=== PATIENT | female | born 1985 | race Caucasian/White ===

== ENCOUNTER 2019-05-26 07:00 | Day surgery (SDC) | payer BC ==
[2019-05-25 09:31] VITALS: BMI 32.9
--- NOTE | 2019-05-26 06:50 | HP ---
History & Physical Update - Physical Physical: No Change - Assessment Assessment: No Change - Plan Plan: No Change (H&P reviwed, no changes, for suction D&C for missed )
[2019-05-26] MEDS ORDERED: MIDAZOLAM HCL 2 MG/2 ML SINGLE DOSE VIAL ONE (08:51)
[2019-05-26] MEDS ORDERED: PROPOFOL 20 ML ONE ×2 (08:51)
[2019-05-26] MEDS ORDERED: SUCCINYLCHOLINE CHLORIDE 200 MG/10 ML SYRINGE ONE (08:51)
[2019-05-26] MEDS ORDERED: LIDOCAINE HCL/PF 2% SDV 5ML VIAL ONE (08:52)
[2019-05-26] MEDS ORDERED: DEXAMETHASONE SOD PHOSPHATE 4 MG/1 ML VIAL ONE (08:56)
[2019-05-26] MEDS ORDERED: ONDANSETRON 4 MG/2 ML VIAL ONE (08:56)
[2019-05-26] MEDS ORDERED: KETOROLAC TROMETHAMINE 30 MG/1 ML VIAL ONE (09:25)
[2019-05-26] MEDS ORDERED: IBUPROFEN 800 MG/8 ML IJ IVPB PRN (09:44)
[2019-05-26] MEDS ORDERED: oxyCODONE HCL 5 MG TABLET PO PRN (09:44)
[2019-05-26] MEDS ORDERED: ONDANSETRON 4 MG/2 ML VIAL IVPUSH PRN (09:44)
[2019-05-26] MEDS ORDERED: IBUPROFEN 600 MG TABLET (FP) PO PRN (09:44)
[2019-05-26] MEDS ORDERED: ELECTROLYTE-148 SOLN 1,000 ML IV SCH (09:45)
--- NOTE | 2019-05-26 09:48 | OP ---
Operative Note - Note: Operative Date: 05/26/19 Pre-Operative Diagnosis: missed Operation: suction D&C Findings: cx closed , uterus 8 weeks retroverted,no pelvic masses felt Surgeon: Damian Cheng Specimens Removed: EMC Estimated Blood Loss (mls): 50 Drains & Tubes with Location: none Blood Volume Replaced (mls): 0 Operative Report Dictated: Yes
[2019-05-26] MEDS ORDERED: LACTATED RINGERS SOLUTION 1,000 ML IV SCH (10:15)
[2019-05-26 12:00] VITALS: TEMP 98.4
--- NOTE | 2019-05-26 13:14 | OP ---
DATE OF OPERATION: 05/26/2019 PREOPERATIVE DIAGNOSIS: Missed . POSTOPERATIVE DIAGNOSIS: Missed . PROCEDURE: Suction dilation and curettage. SURGEON: Damian Cheng MD ANESTHESIA: General. ESTIMATED BLOOD LOSS: 50 mL. DESCRIPTION OF PROCEDURE: Patient was taken to the operating room under adequate general anesthesia in dorsal lithotomy position. Examination under anesthesia revealed external genitalia to be normal. Vagina was normal. Cervix was closed, no lesion. Uterus was retroverted about 8 weeks' size. Adnexa, no masses were palpated. Then with a weighted speculum in the vagina, anterior lip of the cervix was grasped with a single-tooth tenaculum. Cervix was gradually dilated with Hegar dilator and then suction curette was inserted, and the contents was suctioned. Patient tolerated the procedure well, left the OR in good condition. Melvina [id number]
[2019-05-26 13:21] VITALS: BP 108/62; PULSE 84
--- NOTE | 2019-05-27 18:08 | PATH ---
Surgical Pathology Report Patient Name: WALE DIEGO [facility]. Rec. #: [id number] /Age/Gender: 1985 (Age: 33) / F Account: [id number] Location: [facility] SURGICAL Taken: 05/26/2019 Received: 05/26/2019 Reported: 05/27/2019 Physicians: Damian Cheng M.D. Specimen(s) Received UTERINE CONTENTS Clinical History Blighted ovum, missed Final Diagnosis CONTENTS OF UTERUS, SUCTION DILATION AND CURETTAGE: IMMATURE CHORIONIC VILLI, DECIDUA, AND GESTATIONAL ENDOMETRIUM CONSISTENT WITH PRODUCTS OF CONCEPTION. Electronically Signed Rosetta Blackwell M.D. Gross Description Received in formalin labeled "contents of uterus," is a 7.0 x 5.5 x 1.0 cm aggregate of rangel red soft tissue fragments. Villous tissue is identified. No somatic tissue is identified. A customer response representative portion is submitted in one cassette. DL/05/26/2019 saudi/05/26/2019
== END 2019-05-26 12:40 | disposition home or self-care (01) ==
LOC: JASU-SURG 07:00
PROVIDERS: ATTEND Obstetrics & Gynecology
PROC: 10D17ZZ Extraction of Products of Conception, Retained, Via Natural or Artificial Opening (ICD-10-PCS; principal; 2019-05-26 09:00)
DX: O02.1 Missed abortion (principal)
CPT/HCPCS: 86850; 86900; 86901; 88305-TC; 94760

== ENCOUNTER 2020-04-19 05:40 | Inpatient (IN) | payer BC ==
--- OUTSIDE RECORDS SUMMARY | 2020-04-19 05:55 | XMS ---
:1985 Author Organization [facility] Support Name Relationship Address Phone [facility] Unavailable [address] [place], [place] [id number] KENYA DIEGO [address] [place] [address] [facility] [employer]ST[employer] MOTHER [address] [place] [address] Re-disclosure Warning The records that you are about to access may contain information from federally- assisted alcohol or drug abuse programs. If such information is present, then the following federally mandated warning applies: This information has been disclosed to you from records protected by federal confidentiality rules (42 CFR part 2). The federal rules prohibit you from making any further disclosure of this information unless further disclosure is expressly permitted by the written consent of the person to whom it pertains or as otherwise permitted by 42 CFR part 2. A general authorization for the release of medical or other information is NOT sufficient for this purpose. The Federal rules restrict any use of the information to criminally investigate or prosecute any alcohol or drug abuse patient.The records that you are about to access may contain highly sensitive health information, the redisclosure of which is protected by Article 27-F of the [facility] Public Health law. If you continue you may haveaccess to information: Regarding HIV / AIDS; Provided by facilities licensed or operated by the [facility] Office of Mental Health; or Provided by the [facility] Office for People With Developmental Disabilities. If such information is present, then the following [facility] mandated warning applies: This information has been disclosed to you from confidential records which are protected by state law. State law prohibits you from making any further disclosure of this information without the specific written consent of the person to whom it pertains, or as otherwise permitted by law. Any unauthorized further disclosure in violation of state law may result in a fine or assisted sentence or both. A general authorization for the release of medical or other information is NOT sufficient authorization for further disclosure. Insurance Providers Payer name Policy type / Policy ID Covered Covered republican's Policy Plan Coverage type republican ID relationship to [place] Information [employer] PPO [id number]
[2020-04-19] MEDS: ELECTROLYTE-148 SOLN 1,000 ML IV SCH (06:30)
[2020-04-19 06:45] VITALS: BMI 35.6
[2020-04-19] MEDS ORDERED: BUTORPHANOL TARTRATE 1 MG/ML VIAL IVPB ONE (06:55)
[2020-04-19] MEDS ORDERED: PROMETHAZINE HCL 25 MG/1 ML VIAL IVPB ONE (06:55)
--- NOTE | 2020-04-19 07:00 | HP ---
Past Medical History - Primary Care Physician PCP:: Cherelle Sales - Admission Chief Complaint: 34yo @ 39.2wks with induced HTN, measured her home BP to be 160/90, EU BP 150/90, denies LOMELI, visual changes, RUQ tenderness, Reports + FM, no VB, Ctx every 10min, no LOF History of Present Illness: 1. Obese - BMI 37 - GCT - 122/128 - EFW (03/30/20) - 2492gm - 17%(Dr. Juarez) 2. AMA - DNA screen wnl - 46XY 3. GBS pos for Ampicillin in labor 4. Induced HTN - Pec labs sent - IOL History Source: Patient, Medical Record Limitations to Obtaining History: No Limitations - Past Medical History ...: 2 ...Para: 0 ...Term: 0 ...: 0 ...Spon : 1 ...Induced : 0 ...Living Children: 0 ...Multiple Gestation: 0 ... Weeks Gestation by Dates: 39.2 ...EDC by Dates: 04/24/20 Dermatology: Yes: Other (acne) - Past Surgical History Past Surgical History: Yes: Tonsillectomy Hx Myomectomy: No Hx Transabdominal Cerclage: No Additional Surgical History: D&C - Smoking History Smoking history: Never smoked Have you smoked in the past 12 months: No - Alcohol/Substance Use Hx Alcohol Use: No Home Medications - Allergies Allergies/Adverse Reactions: Allergies Allergy/AdvReac Type Severity Reaction Status Date / Time bee pollen Allergy Intermediate Verified 05/25/19 09:35 naproxen [From Naprosyn] Allergy Mild Hives Verified 05/25/19 09:34 - Home Medications Home Medications: Ambulatory Orders Cetirizine HCl [Zyrtec -] 10 mg PO PRN 05/25/19 Ibuprofen [Motrin -] 600 mg PO TID #21 tablet 05/26/19 Physical Exam - Maternity Vital Signs: Vital Signs Temperature 98.0 F 04/19/20 05:40 Pulse Rate 106 H 04/19/20 05:40 Respiratory Rate 18 04/19/20 05:40 Blood Pressure 157/101 H 04/19/20 05:40 O2 Sat by Pulse Oximetry (%) 100 09/22/20 05:40 Constitutional: Yes: Obese Eyes: Yes: WNL HENT: Yes: WNL Neck: Yes: WNL, Supple Cardiovascular: Yes: WNL Lungs: Clear to auscultation Breast(s): Yes: WNL - Abdominal Exam/OB Fundal Height: 39 Number of Fetuses: Single Presentation: Vertex Contractions: Yes Regularity: Regular (Q10min) Intensity: Mild Monitor Mode: External Heart Rate (range): 140 Heart Rate Location: Midline Category: I Accelerations: Uniform Decelerations: None - Vaginal Exam/OB Vaginal Bleeding: No Speculum Exam: No Dilatation (cm): FT Effacement (%): 50% Amniotic Membrane Status: Intact Presentation: Vertex/Position Station: -3 - Physical Exam Musculoskeletal: Yes: WNL Extremities: Yes: WNL Edema: LUE: 1+, LLE: 1+ Integumentary: Yes: WNL ...Motor Strength: WNL Psychiatric: Yes: WNL, Alert, Oriented Assessment/Plan 34yo P0 @ 39.2 wks with PIH, assymptomatic in prodromal labol Admit to L&D PEC labs for further evaluation of Preeclampsia and IOL IVF/NPO Plan to start cervical ripening with Cytotec and reevaluate cervix in 4hours
[2020-04-19 07:05] LABS: EPI CELLS 6 /uL (0-25.1); HYALINE CASTS 1 /uL (0-3.1); URINE APPEARANCE CLEAR; URINE BACTERIA 85 /uL (0-1359); URINE BILIRUBIN NEGATIVE (NEGATIVE); URINE COLOR YELLOW; URINE GLUCOSE (UA) NEGATIVE (NEGATIVE); URINE KETONE NEGATIVE (NEGATIVE); URINE LEUK ESTERASE NEGATIVE (NEGATIVE); URINE NITRITE NEGATIVE (NEGATIVE); URINE PROTEIN NEGATIVE (NEGATIVE); URINE RBC 5 /uL (0-23.9); URINE UROBILINOGEN 0.2 mg/dL (0.2-1.0); URINE WBC 4 /uL (0-25.8)
[2020-04-19 07:08] LABS: BASO % 0.4 % (0-2.0); EOS % 0.5 % (0-4.5); HEMATOCRIT 33.3 % (32.4-45.2); HEMOGLOBIN 11.4 GM/dL (10.7-15.3); LYMPH % 18.1 % (8-40); MCH 29.5 pg (25.7-33.7); MCHC 34.2 g/dl (32.0-36.0); MEAN CELL VOLUME 86.3 fl (80-96); MEAN PLT VOLUME 11.2 fl (7.5-11.1); PLATELET COUNT 188 K/MM3 (134-434); RBC 3.86 M/mm3 (3.60-5.2); RDW 13.9 % (11.6-15.6); RETICULOCYTES 2.03 % (0.5-1.5); WHITE BLOOD COUNT 10.7 K/mm3 (4.0-10.0)
[2020-04-19 07:18] LABS: INR 0.97 (0.83-1.09); PROTHROMBIN TIME (PATIENT) 11.5 SEC (9.7-13.0)
[2020-04-19 07:21] LABS: ACTIVATED PTT 29.2 SECONDS (25.2-36.5)
[2020-04-19 07:29] LABS: URIC ACID 4.3 mg/dL (2.6-7.2)
[2020-04-19 07:32] LABS: ALBUMIN 2.6 g/dl (3.4-5.0); BILIRUBIN,TOTAL 0.8 mg/dL (0.2-1); BLOOD UREA NITROGEN 9.9 mg/dL (7-18); CALCIUM 8.9 mg/dL (8.5-10.1); CREATININE 0.6 mg/dL (0.55-1.3); POTASSIUM 3.9 mmol/L (3.5-5.1); TOT PROT 6.3 g/dl (6.4-8.2)
[2020-04-19] MEDS ORDERED: AMPICILLIN - 2 GM in SODIUM CHLORIDE 100 ML IVPB ONE (08:30)
[2020-04-19] MEDS: MISOPROSTOL 100 MCG TABLET PV SCH ×2 (08:55→16:46)
--- NOTE | 2020-04-19 09:00 | PN ---
Progress Note, Labor Vaginal Exam #1 Labor Exam Date: 04/19/20 Labor Exam Time: 09:00 Heart Rate (range): 130's Category 1 Dilatation: FT Effacement (%): 50% Amniotic Membrane Status: Intact Presentation: Vertex/Position Station: -3 Remarks: 34yo P0 @ 39wks with induced HTN BPs wnl, labs and Urine Protein - wnl will proceed with IOL Gynecoid pelvis, EFW 7.5lb Cytotec # 1 placed in the posterior fornix
[2020-04-19] MEDS ORDERED: PROMETHAZINE HCL 25 MG/1 ML VIAL ONE (14:18)
[2020-04-19] MEDS ORDERED: BUTORPHANOL TARTRATE 2 MG/ML VIAL ONE (14:18)
--- NOTE | 2020-04-19 14:21 | PN ---
Progress Note, Labor Vaginal Exam #2 Labor Exam Date: 04/19/20 Labor Exam Time: 14:15 Remarks: Cervical caraballo placed with 70cc NS asking for pain relief Will give Stadol/Phenergan first, if further relief needed will request an epidural
[2020-04-19] MEDS: OXYTOCIN 30 UNITS in 0.9% NS 30 UNIT/500 ML INFUS.BAG IVPB SCH (14:30)
[2020-04-19] MEDS ORDERED: AMPICILLIN SODIUM 2 GM VIAL ONE (14:35)
[2020-04-19] MEDS ORDERED: FENTANYL/BUPIVACAINE/NS/PF - PCEA - 50 ML DISP.SYRIN EP ONE ×2 (15:23→20:51)
[2020-04-19] MEDS ORDERED: NALOXONE HCL 0.4 MG/ML VIAL IVPUSH PRN (15:31)
[2020-04-19] MEDS ORDERED: BUPIVACAINE HCL/PF 0.25% (2.5MG/ML) 10 ML VIAL ONE (15:33)
[2020-04-19] MEDS: FENTANYL/BUPIVACAINE/NS/PF - PCEA - 50 ML DISP.SYRIN EP SCH (16:05)
[2020-04-19] MEDS: AMPICILLIN - 1 GM in SODIUM CHLORIDE 100 ML IVPB SCH ×2 (16:46→22:30)
[2020-04-19] MEDS ORDERED: AMPICILLIN SODIUM 1 GM VIAL ONE ×2 (17:22→22:16)
--- NOTE | 2020-04-19 20:25 | PN ---
Ante-Partal Exam - Subjective Subjective: Pt w/o complaints. Pt with epidural in place. Pitocin at 3 mU VE at 19:50. Vital Signs: Vital Signs Temperature 98.0 F 04/19/20 20:00 Pulse Rate 88 04/19/20 18:45 Respiratory Rate 20 04/19/20 18:45 Blood Pressure 131/68 04/19/20 18:45 O2 Sat by Pulse Oximetry (%) 99 04/19/20 18:45 Bleeding: No Headache: No Visual changes: No Right upper quadrant pain: No Pain (scale 1-10): 0 - Contractions Contractions: Yes (q2min) Regularity: Regular Intensity: Unaware Monitor Mode: External - Exam during Labor Heart Rate: 135 Variability: Moderate Heart Rate Location: Midline Category: I Monitor Accelerations: Present Monitor Decelerations: None Exam: Vaginal Dilatation (cm): 6 Effacement (%): 90 Amniotic Membrane Status: Ruptured (Cervical balloon removed, AROM done) Amniotic Fluid: Meconium Stained Meconium Staining: Moderate Presentation: Vertex Station: -1 Remarks: Gynecoid pelvimetry - Intrapartum Hemorrhage Risk Medium Risk Factors: None High Risk Factors: None Risk Score: 0 Risk Level: Low Risk - Assessment/Plan Assessment/Plan: 34 yo P0 with at EGA 39w2 and gestational HTN, with induced labor. Fetus with Category I tracing and does not require intervention Labor progressed to active phase. AROM done. Gest HTN with stable BP, no meds needed at this time. Plan to monitor progress.
[2020-04-19] MEDS ORDERED: PCA PUMP NR ONE (20:51)
--- NOTE | 2020-04-19 21:38 | PN ---
Ante-Partal Exam - Subjective Subjective: No complaints Vital Signs: Vital Signs Temperature 98.0 F 04/19/20 20:00 Pulse Rate 88 04/19/20 18:45 Respiratory Rate 20 04/19/20 18:45 Blood Pressure 131/68 04/19/20 18:45 O2 Sat by Pulse Oximetry (%) 99 04/19/20 18:45 Bleeding: No Headache: No Visual changes: No Right upper quadrant pain: No (0) - Contractions Contractions: Yes (q4min) Regularity: Regular Intensity: Moderate Monitor Mode: External - Exam during Labor Heart Rate: 140 Variability: Moderate Heart Rate Location: Midline Category: II Monitor Accelerations: Present Monitor Decelerations: Variable Exam: Vaginal (a 9pm) Dilatation (cm): 6 Effacement (%): 80 Amniotic Membrane Status: Leaking Presentation: Vertex Station: -3 - Intrapartum Hemorrhage Risk Medium Risk Factors: None High Risk Factors: None Risk Score: 0 Risk Level: Low Risk - Assessment/Plan Assessment/Plan: Pt with Category II tracing. Variable decels are present. Plan to try to resolved the issues with position change or IUPC Labor did not progress. Plan to monitor for now.
--- NOTE | 2020-04-19 23:36 | PN ---
Ante-Partal Exam - Subjective Subjective: No complaints Vital Signs: Vital Signs Temperature 98.9 F 04/19/20 22:00 Pulse Rate 100 H 04/19/20 22:15 Respiratory Rate 18 04/19/20 22:15 Blood Pressure 127/67 04/19/20 22:15 O2 Sat by Pulse Oximetry (%) 100 04/19/20 22:15 Bleeding: No Headache: No Visual changes: No Right upper quadrant pain: No Pain (scale 1-10): 0 - Contractions Contractions: Yes Regularity: Regular Intensity: Unaware Monitor Mode: External - Exam during Labor Heart Rate: 145 Variability: Moderate Heart Rate Location: Midline Category: I Monitor Accelerations: Present Monitor Decelerations: None Exam: Vaginal Dilatation (cm): 8 Effacement (%): 90 Amniotic Fluid: Clear Presentation: Vertex Station: 0 - Intrapartum Hemorrhage Risk Medium Risk Factors: None High Risk Factors: None Risk Score: 0 Risk Level: Low Risk - Assessment/Plan Assessment/Plan: Progressed in active labor. Fetus with category I tracing BP is wnl Continue to monitor progress
[2020-04-20] MEDS ORDERED: FENTANYL/BUPIVACAINE/NS/PF - PCEA - 50 ML DISP.SYRIN EP ONE (00:51)
[2020-04-20] MEDS ORDERED: BUPIVACAINE HCL/PF 0.25% (2.5MG/ML) 10 ML VIAL ONE (01:14)
[2020-04-20] MEDS: AMPICILLIN - 1 GM in SODIUM CHLORIDE 100 ML IVPB SCH ×5 (02:00→20:00)
[2020-04-20] MEDS: ELECTROLYTE-148 SOLN 1,000 ML IV SCH (04:00)
[2020-04-20] MEDS ORDERED: AMPICILLIN SODIUM 1 GM VIAL ONE (05:14)
[2020-04-20] MEDS ORDERED: OXYTOCIN 20 UNITS in 0.9% NS 20 UNIT/1,000 ML INFUS.BAG IV ONE (07:07)
[2020-04-20] MEDS ORDERED: LIDOCAINE HCL 1% PRESERVATIVE FREE - 30ML VIAL ONE ×2 (07:07→09:31)
--- NOTE | 2020-04-20 07:24 | PN ---
Ante-Partal Exam - Subjective Subjective: Pt is pushing Vital Signs: Vital Signs Temperature 98.4 F 04/20/20 05:00 Pulse Rate 120 H 04/20/20 05:30 Respiratory Rate 18 04/20/20 05:30 Blood Pressure 158/71 04/20/20 05:30 O2 Sat by Pulse Oximetry (%) 99 04/20/20 05:30 Bleeding: No Headache: No Visual changes: No Right upper quadrant pain: No Pain (scale 1-10): 10 - Contractions Contractions: Yes Regularity: Regular Intensity: Mod/Strong Monitor Mode: External - Exam during Labor Heart Rate: 130 Variability: Moderate Heart Rate Location: Midline Category: I Exam: Vaginal Dilatation (cm): 10 Effacement (%): 100 Presentation: Vertex Station: +1 - Intrapartum Hemorrhage Risk Medium Risk Factors: None High Risk Factors: None Risk Score: 0 Risk Level: Low Risk - Assessment/Plan Assessment/Plan: Continue 2nd stage Anticipate
[2020-04-20] MEDS ORDERED: OXYTOCIN 10 UNITS/ML VIAL ONE (08:51)
--- NOTE | 2020-04-20 10:00 | PN ---
Delivery - Delivery Vaginal Delivery: No Problems Type of Anesthesia: Epidural Episiotomy/Laceration: Midline, 2nd degree EBL (cc): 300 Delivery, Single - Stages of Labor Date 2nd Stage Initiated: 04/20/20 Time 2nd Stage Initiated: 05:45 Date of Delivery: 04/20/20 Time of Delivery: 09:27 Date Placenta Delivered: 04/20/20 Time Placenta Delivered: 09:47 Placenta: Yes: Spontaneous - Condition of Infant Infant Gender: Male Position: Left, OA - 1 Minute Total Score: 6 5 Minutes Total Score: 8 - Feeding Plan Initial Plan: Elected not to breastfeed exclusively throughout hospitalization Remarks - Remarks Remarks: Patient progressed to fully dilated and at 926 via delivered a viable male in TANYA position, APGARs 6,8. Weight and length unknown at this time. Head delivered spontaneously, nuchal cord noted and reduced. Right anterior shoulder noted to be difficult. Time noted, nursing staff and nursery notified of shoulder dystocia. Patient placed in Mc Bobby's position, posterior arm delivered and anterior shoulder reduced. Thick meconium noted. Cord was clamped and cut, handed to waiting Nursing staff. Perineum and vagina examined, a second degree laceration was noted and repaired in the usual fashion. Rectal exam revealed no sutures in rectum. Placenta was delivered spontaneously and intact. 20 units of pitocin in 1 L IVF was given. All counts correct x 2. Mother and infant stable in LDR. EBL 300cc.
[2020-04-20] MEDS ORDERED: BISACODYL 10 MG SUPP.RECT RC PRN (10:06)
[2020-04-20] MEDS ORDERED: BENZOCAINE 20% 57 GM BOTTLE TP PRN (10:06)
[2020-04-20] MEDS ORDERED: WITCH HAZEL 50% (TUCKS) 40 PAD/JAR PAD TP PRN (10:06)
[2020-04-20] MEDS ORDERED: BENZOCAINE 28 GM HEMORRHOIDAL OINTMENT TP PRN (10:06)
[2020-04-20] MEDS ORDERED: IBUPROFEN 600 MG TABLET (FP) PO PRN (10:06)
[2020-04-20] MEDS ORDERED: METHYLERGONOVINE MALEATE 0.2 MG/1 ML AMP IM PRN (10:06)
[2020-04-20] MEDS ORDERED: OXYTOCIN 20 UNITS in 0.9% NS 20 UNIT/1,000 ML INFUS.BAG IV SCH (10:15)
[2020-04-20 10:24] LABS: CORD HCO3 12.8 mmHg (20-29); CORD PCO2 40.2 mmHg (30-78); CORD pH 7.12 (7.14-7.44)
[2020-04-20 10:25] LABS: CORD HCO3 13.5 mmHg (20-29); CORD PCO2 56.7 mmHg (30-78)
[2020-04-20 10:28] LABS: CORD pH 6.994 (7.14-7.44)
[2020-04-20] MEDS ORDERED: IBUPROFEN 600 MG TABLET (FP) PO ONE (10:51)
[2020-04-20] MEDS: IBUPROFEN 600 MG TABLET (FP) PO PRN ×2 (11:00→19:31)
[2020-04-20] MEDS: FENTANYL/BUPIVACAINE/NS/PF - PCEA - 50 ML DISP.SYRIN EP SCH (18:47)
[2020-04-20] MEDS: MISOPROSTOL 100 MCG TABLET PV SCH (18:48)
[2020-04-20] MEDS: OXYTOCIN 30 UNITS in 0.9% NS 30 UNIT/500 ML INFUS.BAG IVPB SCH (18:48)
[2020-04-20] MEDS: ACETAMINOPHEN 325 MG TABLET (FP) PO PRN (19:30)
--- NOTE | 2020-04-21 00:05 | PN ---
Post Progress Note - Subjective Subjective: Patient without acute complaints. Mild LOMELI, no change in vision, RUQ pain Reports tolerating oral intake without nausea or vomiting. Ambulating without dizziness. Denies fevers or chills. Pain well controlled with oral pain medication. Bottle feeding, desires to breastfeed Passing flatus. Post Day: 1 Type of Delivery: Vital Signs: Vital Signs Temperature 97.4 F L 04/20/20 22:00 Pulse Rate 98 H 04/20/20 22:00 Respiratory Rate 18 04/20/20 22:00 Blood Pressure 122/92 04/20/20 22:00 O2 Sat by Pulse Oximetry (%) 100 04/20/20 10:30 Breast Exam: Yes: Soft Uterus: Yes: Fundus Firm, Fundus below umbilicus Abdomen/GI: Yes: Abdomen soft, Passing flatus, Tolerating PO. No: Abdominal Distention, Tender Lochia: Yes: Rubra Lochia, amount: Moderate Extremities: Yes: Calves non-tender, Edema (+1) - Labs Labs: CBC WBC 10.7 K/mm3 (4.0-10.0) H 04/19/20 06:15 RBC 3.86 M/mm3 (3.60-5.2) 04/19/20 06:15 Hgb 11.4 GM/dL (10.7-15.3) 04/19/20 06:15 Hct 33.3 % (32.4-45.2) 04/19/20 06:15 MCV 86.3 fl (80-96) 04/19/20 06:15 MCH 29.5 pg (25.7-33.7) 04/19/20 06:15 MCHC 34.2 g/dl (32.0-36.0) 04/19/20 06:15 RDW 13.9 % (11.6-15.6) 04/19/20 06:15 Plt Count 188 K/MM3 (134-434) 04/19/20 06:15 MPV 11.2 fl (7.5-11.1) H 04/19/20 06:15 Absolute Neuts (auto) 7.7 K/mm3 (1.5-8.0) 04/19/20 06:15 Neutrophils % 72.0 % (42.8-82.8) 04/19/20 06:15 Lymphocytes % 18.1 % (8-40) 04/19/20 06:15 Monocytes % 9.0 % (3.8-10.2) 04/19/20 06:15 Eosinophils % 0.5 % (0-4.5) 04/19/20 06:15 Basophils % 0.4 % (0-2.0) 04/19/20 06:15 Nucleated RBC % 0 % (0-0) 04/19/20 06:15 Retic Count 2.03 % (0.5-1.5) H 04/19/20 06:15 Haptoglobin 172 mg/dL (33-278) 04/19/20 06:15 Assessment/Plan 34 yo PPD # 1 s/p 1. Continue routine care. 2. AM CBC with anemia, patient asymptomatic 3. PIH - BP elevated this AM Reports headache, no visual changes Will continue to closely monitor BPs for signs of preeclampsia 4. Rh positive status, no rhogam indicated. 5. Encourage ambulation 6. Continue oral pain medication 7. Anticipate discharge home day #2
[2020-04-21 07:50] LABS: BASO % 0.2 % (0-2.0); EOS % 0.3 % (0-4.5); HEMATOCRIT 25.5 % (32.4-45.2); HEMOGLOBIN 8.4 GM/dL (10.7-15.3); MCH 28.3 pg (25.7-33.7); MCHC 32.9 g/dl (32.0-36.0); MEAN PLT VOLUME 10.1 fl (7.5-11.1); NEUT % 78.5 % (42.8-82.8); PLATELET COUNT 173 K/MM3 (134-434); RBC 2.96 M/mm3 (3.60-5.2); RDW 14.6 % (11.6-15.6); WHITE BLOOD COUNT 19.4 K/mm3 (4.0-10.0)
[2020-04-21] MEDS: IBUPROFEN 600 MG TABLET (FP) PO PRN ×3 (08:08→21:25)
[2020-04-21] MEDS: ACETAMINOPHEN 325 MG TABLET (FP) PO PRN ×3 (08:09→21:25)
--- NOTE | 2020-04-21 09:25 | DS ---
Physical Exam-SUPERVISOR [employer]EREAL Vital Signs: Vital Signs Temperature 97.9 F 04/21/20 06:00 Pulse Rate 91 H 04/21/20 06:00 Respiratory Rate 18 04/21/20 06:00 Blood Pressure 119/84 04/21/20 06:00 O2 Sat by Pulse Oximetry (%) 96 04/21/20 06:00 Labs: CBC, BMP 04/21/20 07:05 04/19/20 06:15 Delivery - Delivery Vaginal Delivery: No Problems Type of Anesthesia: Epidural Episiotomy/Laceration: 2nd degree EBL (cc): 300 Delivery, Single - Stages of Labor Date 1st Stage Initiatied: 04/19/20 Time 1st Stage Initiated: 15:00 Date 2nd Stage Initiated: 04/20/20 Time 2nd Stage Initiated: 05:45 Date of Delivery: 04/20/20 Time of Delivery: 09:27 Time Placenta Delivered: 09:47 Placenta: Yes: Spontaneous - Condition of Fingerprint Clerk/Academic Support Coordinator Present: Yes Name: Margo Middleton Gender: Male Weight: 6 lb 9 oz Position: Left, OA Total Hours ROM (Hrs/Mins): 15h27m - 1 Minute Total Score: 6 5 Minutes Total Score: 8 - Duson Feeding Plan Initial Plan: Elected not to breastfeed exclusively throughout hospitalization Discharge Summary Problems reviewed: Yes Reason For Visit: LABOR ADMIT Current Active Problems induced hypertension, delivered, current hospitalization (Acute) Vaginal delivery (Acute) Procedures: Principal: Vaginal delivery Other Procedures: induction of labor Hospital Course: Patient was admitted at 39 wks with gHTN and in prodomal labor, for induction of labor HD # 1 patient received cervidil progressed to deliver via viable male infant PPD # 1 patient ambulated, voiding, passing gas, tolerating oral intake and with adequate pain control. BPs montiored, no signs of preeclampsia during hospital stay She fulfilled all criteria for discharge PPD #2 Condition: Good - Instructions Diet, Activity, Other Instructions: Follow up in 4-6 wks for visit Physical activity Resume your normal everyday activity as tolerated no heavy lifting or exercise until seen by your surgeon. You may walk unlimited chapis of and climb stairs. You may resume driving the car when you feel safe and comfortable behind the wheel. No sexual activity as instructed. Diet There are no dietary restrictions. Eat healthy, high-fiber foods. Drink 6 to 8 glasses of liquid each day. This will assist in keeping your bowels are regular. Pain management You may take Tylenol or acetaminophen or Ibuprofen (for example, Motrin, Advil etc.) for moderate to severe pain. Call MD for any of the following: Severe pain not relieved by medication Fever of 101 or higher Excessive bleeding or drainage on dressing Inability to urinate Referrals: Db Mendoza MD [Staff Physician] - Disposition: HOME - Home Medications Comprehensive Discharge Medication List: Ambulatory Orders Cetirizine HCl [Zyrtec -] 10 mg PO PRN 05/25/19 Ibuprofen [Motrin -] 600 mg PO TID #21 tablet 05/26/19
[2020-04-21] MEDS: PRENATAL VITAMINS W/ FOLIC ACID TABLET (FP) PO SCH (09:58)
[2020-04-21] MEDS ORDERED: SENNOSIDES/DOCUSATE COMBO (SENNA PLUS) TABLET (UD) PO PRN (22:00)
[2020-04-21 23:57] VITALS: PULSE 92
--- NOTE | 2020-04-22 06:24 | PN ---
Progress Note (short form) - Note Progress Note: ppd no c/o, voids ok, no excess vaginal bleeding, no dizziness, no headache,no blurred vision abdomen soft, no distension, no cva , uterus firm, non tender lochia mild no calf tenderness impression bp stable, asymptomatic anemia, no dizziness , no active bleeding elevated wbc plan repeat cbc , if ok, d/c home with instruction , follow up office 3 to 4 days for BP check
[2020-04-22] MEDS: ACETAMINOPHEN 325 MG TABLET (FP) PO PRN ×2 (07:05→11:30)
[2020-04-22] MEDS: IBUPROFEN 600 MG TABLET (FP) PO PRN ×2 (07:05→11:30)
[2020-04-22] MEDS: PRENATAL VITAMINS W/ FOLIC ACID TABLET (FP) PO SCH (09:22)
[2020-04-22 09:53] VITALS: BP 133/77; TEMP 97.7
[2020-04-22 10:25] LABS: BASO % 0.5 % (0-2.0); EOS % 0.9 % (0-4.5); HEMATOCRIT 27.8 % (32.4-45.2); HEMOGLOBIN 9.2 GM/dL (10.7-15.3); LYMPH % 13.7 % (8-40); MCH 28.5 pg (25.7-33.7); MEAN CELL VOLUME 86.5 fl (80-96); MONO % 6.6 % (3.8-10.2); NEUT % 78.3 % (42.8-82.8); PLATELET COUNT 194 K/MM3 (134-434); RBC 3.21 M/mm3 (3.60-5.2); RDW 14.6 % (11.6-15.6); WHITE BLOOD COUNT 16.1 K/mm3 (4.0-10.0)
== END 2020-04-22 12:55 | disposition home or self-care (01) | DRG 807 ==
LOC: JLDR 05:40 → J3W 04-20 11:45
PROVIDERS: ADMIT Obstetrics & Gynecology; ATTEND Obstetrics & Gynecology
PROC: 0U7C7ZZ Dilation of Cervix, Via Natural or Artificial Opening (ICD-10-PCS; 2020-04-19)
PROC: 10E0XZZ Delivery of Products of Conception, External Approach (ICD-10-PCS; principal; 2020-04-20)
PROC: 0KQM0ZZ Repair Perineum Muscle, Open Approach (ICD-10-PCS; 2020-04-20)
PROC: 0W8NXZZ Division of Female Perineum, External Approach (ICD-10-PCS; 2020-04-20)
PROC: 10907ZC Drainage of Amniotic Fluid, Therapeutic from Products of Conception, Via Natural or Artificial Opening (ICD-10-PCS; 2020-04-20)
DX: O13.4 Gestational [pregnancy-induced] hypertension without significant proteinuria, complicating childbirth (principal); Z37.0 Single live birth; O66.0 Obstructed labor due to shoulder dystocia; O69.1XX0 Labor and delivery complicated by cord around neck, with compression, not applicable or unspecified; O70.1 Second degree perineal laceration during delivery; O77.0 Labor and delivery complicated by meconium in amniotic fluid; O99.214 Obesity complicating childbirth; E66.9 Obesity, unspecified; O90.81 Anemia of the puerperium; D64.9 Anemia, unspecified; O99.824 Streptococcus B carrier state complicating childbirth; Z3A.39 39 weeks gestation of pregnancy; Z88.8 Allergy status to other drugs, medicaments and biological substances; Z91.030 Bee allergy status
CPT/HCPCS: 36415; 36600; 59409; 80053; 81003; 82803; 82977; 83010; 84450; 84460; 84550; 85025; 85045; 85610; 85730; 86780; 86850; 86900; 86901; U0003

== ENCOUNTER 2023-03-12 06:23 | Inpatient (IN) | payer BC ==
[2023-03-12] MEDS ORDERED: ELECTROLYTE-148 SOLN 500 ML IV ONE (06:45)
[2023-03-12 07:00] VITALS: BMI 36.6
[2023-03-12] MEDS ORDERED: CITRIC ACID/SODIUM CITRATE 30 ML UNIT-DOSE CUP PO ONE (07:15)
[2023-03-12] MEDS: ELECTROLYTE-148 SOLN 1,000 ML IV SCH (07:30)
[2023-03-12] MEDS ORDERED: PHENYLEPHRINE HCL 10 MG/1 ML SINGLE DOSE VIAL ONE ×2 (08:06→08:07)
[2023-03-12] MEDS ORDERED: morphine SULFATE/PF 1 MG/2 ML (2cc Syringe - QUVA) ONE (08:06)
[2023-03-12] MEDS ORDERED: ceFAZolin SODIUM 1 GM VIAL ONE (08:06)
[2023-03-12] MEDS ORDERED: OXYTOCIN 20 UNITS in 0.9% NS 20 UNIT/1,000 ML INFUS.BAG IV ONE ×2 (08:25→10:45)
[2023-03-12] MEDS ORDERED: ONDANSETRON 4 MG/2 ML VIAL ONE (08:36)
[2023-03-12] MEDS ORDERED: DEXAMETHASONE SOD PHOSPHATE 4 MG/1 ML VIAL ONE (08:36)
[2023-03-12] MEDS ORDERED: OXYTOCIN 10 UNITS/ML VIAL ONE (08:36)
[2023-03-12] MEDS ORDERED: KETOROLAC TROMETHAMINE 30 MG/1 ML VIAL ONE (08:51)
[2023-03-12] MEDS ORDERED: ONDANSETRON 4 MG/2 ML VIAL IVPUSH PRN (09:29)
[2023-03-12] MEDS ORDERED: SENNOSIDES/DOCUSATE COMBO (SENNA PLUS) TABLET (UD) PO PRN (09:42)
[2023-03-12] MEDS ORDERED: METHYLERGONOVINE MALEATE 0.2 MG/1 ML AMP IM PRN (09:42)
[2023-03-12 10:16] LABS: CORD HCO3 25.3 mmHg (20-29); CORD PCO2 58.7 mmHg (30-78); CORD pH 7.253 (7.14-7.44)
[2023-03-12 10:17] LABS: CORD BASE EXCESS -2.6 mmol/L (0-2); CORD HCO3 23.3 mmHg (20-29); CORD PCO2 44.2 mmHg (30-78); CORD pH 7.34 (7.14-7.44)
[2023-03-12] MEDS: OXYTOCIN 20 UNITS in 0.9% NS 20 UNIT/1,000 ML INFUS.BAG IV SCH (10:50)
[2023-03-12] MEDS: IBUPROFEN 800 MG/8 ML IJ IVPB PRN (16:35)
[2023-03-12] MEDS ORDERED: oxyCODONE HCL 5 MG TABLET PO PRN ×2 (21:42)
[2023-03-13] MEDS: IBUPROFEN 800 MG/8 ML IJ IVPB PRN ×2 (00:45→07:14)
[2023-03-13] MEDS: SIMETHICONE 80 MG TAB.CHEW (FP) PO PRN ×3 (00:45→22:11)
[2023-03-13 08:08] LABS: BASO % 0.4 % (0-2.0); EOS % 0.2 % (0-4.5); HEMATOCRIT 27.6 % (32.4-45.2); HEMOGLOBIN 9.4 GM/dL (10.7-15.3); LYMPH % 17.8 % (8-40); MCH 30.3 pg (25.7-33.7); MCHC 34.1 g/dl (32.0-36.0); MEAN PLT VOLUME 9.8 fl (7.5-11.1); MONO % 9.5 % (3.8-10.2); NEUT % 72.1 % (42.8-82.8); PLATELET COUNT 150 10^3/uL (134-434); RBC 3.11 M/mm3 (3.60-5.2); WHITE BLOOD COUNT 12.3 K/mm3 (4.0-10.0)
[2023-03-13] MEDS ORDERED: BISACODYL 10 MG SUPP.RECT RC PRN (09:42)
[2023-03-13] MEDS: ENOXAPARIN NA (PORCINE) 40 MG/0.4 ML DISP.SYRIN SQ SCH (09:50)
[2023-03-13] MEDS ORDERED: DOCUSATE SODIUM 100 MG CAPSULE (FP) PO PRN (11:54)
[2023-03-13] MEDS: IBUPROFEN 600 MG TABLET (FP) PO PRN ×3 (14:06→22:12)
[2023-03-13] MEDS: FERROUS SO4 325 MG TABLET (FP) PO SCH (17:53)
[2023-03-13] MEDS: ACETAMINOPHEN 325 MG TABLET (FP) PO PRN ×2 (18:19→23:39)
[2023-03-14] MEDS: IBUPROFEN 600 MG TABLET (FP) PO PRN ×4 (06:28→20:35)
[2023-03-14] MEDS: OXYTOCIN 20 UNITS in 0.9% NS 20 UNIT/1,000 ML INFUS.BAG IV SCH (07:10)
[2023-03-14] MEDS: ELECTROLYTE-148 SOLN 1,000 ML IV SCH (07:10)
[2023-03-14] MEDS: FERROUS SO4 325 MG TABLET (FP) PO SCH ×2 (09:28→17:22)
[2023-03-14] MEDS: ENOXAPARIN NA (PORCINE) 40 MG/0.4 ML DISP.SYRIN SQ SCH (09:50)
[2023-03-14] MEDS: ACETAMINOPHEN 325 MG TABLET (FP) PO PRN ×2 (17:22→23:37)
[2023-03-15] MEDS: IBUPROFEN 600 MG TABLET (FP) PO PRN ×2 (03:50→09:53)
[2023-03-15] MEDS: ACETAMINOPHEN 325 MG TABLET (FP) PO PRN (06:12)
[2023-03-15] MEDS: FERROUS SO4 325 MG TABLET (FP) PO SCH (08:37)
[2023-03-15 08:53] VITALS: RESP 16
[2023-03-15 08:54] LABS: BASO % 0.6 % (0-2.0); EOS % 1.3 % (0-4.5); HEMATOCRIT 28.2 % (32.4-45.2); HEMOGLOBIN 9.4 GM/dL (10.7-15.3); LYMPH % 18.1 % (8-40); MCH 30.1 pg (25.7-33.7); MCHC 33.5 g/dl (32.0-36.0); MEAN CELL VOLUME 90.1 fl (80-96); MEAN PLT VOLUME 9.4 fl (7.5-11.1); PLATELET COUNT 179 10^3/uL (134-434); RBC 3.13 M/mm3 (3.60-5.2); RDW 13.9 % (11.6-15.6); WHITE BLOOD COUNT 8.6 K/mm3 (4.0-10.0)
[2023-03-15 08:55] VITALS: BP 125/70; PULSE 84; TEMP 98.3
[2023-03-15] MEDS: SIMETHICONE 80 MG TAB.CHEW (FP) PO PRN (09:53)
[2023-03-15] MEDS: ENOXAPARIN NA (PORCINE) 40 MG/0.4 ML DISP.SYRIN SQ SCH (09:55)
== END 2023-03-15 14:21 | disposition home or self-care (01) | DRG 787 ==
LOC: JLDR 06:23 → J3W 11:00
PROVIDERS: ADMIT Obstetrics & Gynecology; ATTEND Obstetrics & Gynecology
PROC: 10D00Z1 Extraction of Products of Conception, Low, Open Approach (ICD-10-PCS; principal; 2023-03-12)
DX: O82 Encounter for cesarean delivery without indication (principal); O10.92 Unspecified pre-existing hypertension complicating childbirth; Z3A.38 38 weeks gestation of pregnancy; Z37.0 Single live birth
CPT/HCPCS: 36415; 36600; 82803; 85025; 88307-TC